=== PATIENT | male | born 1955 | race Caucasian/White ===

== ENCOUNTER → 2018-05-31 | Outpatient (CLI) | payer BC ==
[2018-05-31 10:40] VITALS: BMI 33.2
== END | disposition home or self-care (01) ==
LOC: MNTWWP 08:59
PROVIDERS: ATTEND Family Medicine
DX: R73.03 Prediabetes (principal)
CPT/HCPCS: 97802

== ENCOUNTER 2019-06-21 07:04 | Day surgery (SDC) | payer BC ==
[2019-06-19 15:44] VITALS: BMI 32.5
[~2019-06-21 07:04] MED LIST: LACTATED RINGERS 1,000 ML IV SCH; LIDOCAINE 1% 20 ML VIAL (10MG/ML) FOR IV START INTRADERMA PRN
[2019-06-21 07:22] VITALS: TEMP 98.4
[2019-06-21] MEDS ORDERED: PROPOFOL 10 MG/ML 20 ML VIAL IV ONE (07:35)
--- NOTE | 2019-06-21 07:40 | P.GSHP ---
History of Present Illness H&P Date: 06/21/19 CHIEF COMPLAINT: Colon screen HISTORY OF PRESENT ILLNESS: The patient is a 64-year-old male who presents for colon screen. Lower endoscopy was offered for further evaluation and management. PAST MEDICAL HISTORY: Please see list. PAST SURGICAL HISTORY: Please see list. MEDICATIONS: Please see list. ALLERGIES: Please see list. SOCIAL HISTORY: No illicit drug use FAMILY HISTORY: No reports of Crohn disease or ulcerative colitis. REVIEW OF ORGAN SYSTEMS: CONSTITUTIONAL: No reports of fevers or chills. PHYSICAL EXAM: VITAL SIGNS: Stable GENERAL: Well-developed pleasant in no acute distress. HEENT: No scleral icterus. Extraocular movements grossly intact. Moist buccal mucosa. NECK: Supple without lymphadenopathy. CHEST: Unlabored respirations. Equal bilateral excursions. CARDIOVASCULAR: Regular rate and rhythm. Distal 2+ pulses. ABDOMEN: Soft, nontender, nondistended. MUSCULOSKELETAL: No clubbing, cyanosis, or edema. ASSESSMENT: 1. Colon screen. PLAN: 1. Recommend proceeding with a lower endoscopy Past Medical History Past Medical History: GERD/Reflux, Hyperlipidemia, Hypertension Additional Past Medical History / Comment(s): KIDNEY STONE History of Any Multi-Drug Resistant Organisms: None Reported Past Surgical History: Hernia Repair, Orthopedic Surgery Additional Past Surgical History / Comment(s): neck fusion, right shoulder SX, COLONOSCOPY, SX FOR KIDNEY STONES Past Anesthesia/Blood Transfusion Reactions: Postoperative Nausea & Vomiting (PONV) Additional Past Anesthesia/Blood Transfusion Reaction / Comment(s): Had issues coming out of Anesthesia. Stated N/V Smoking Status: Former smoker - Past Family History Sister(s) Family Medical History: Cancer Medications and Allergies Home Medications Medication Instructions Recorded Confirmed Type Enalapril [Vasotec] 5 mg PO BID 02/12/16 06/21/19 History Fenofibrate Nanocrystallized 145 mg PO DAILY 02/12/16 06/21/19 History [Fenofibrate] Hydrochlorothiazide 12.5 mg PO Q48H 02/12/16 06/21/19 History Metoprolol Tartrate [Lopressor] 50 mg PO BID 02/12/16 06/21/19 History amLODIPine [Norvasc] 5 mg PO BID 02/12/16 06/21/19 History traMADol HCL [Ultram] 50 mg PO Q6H PRN 02/12/16 06/21/19 History Atorvastatin [Lipitor] 10 mg PO HS 11/27/17 06/21/19 History Potassium Chloride [Klor-Con 10] 10 meq PO HS 11/27/17 06/21/19 History Ascorbic Acid [Vitamin C] 500 mg PO DAILY 06/19/19 06/21/19 History Cholecalciferol [Vitamin D3 (25 5,000 unit PO DAILY 06/19/19 06/21/19 History Mcg = 1000 Iu)] Fish Oil/Dha/Epa [Fish Oil 1,200 1 each PO DAILY 06/19/19 06/21/19 History mg Fish Oil] Ranitidine HCl [Zantac] 150 mg PO DAILY PRN 06/19/19 06/21/19 History Vitamin B Complex 1 each PO DAILY 06/19/19 06/21/19 History Allergies Allergy/AdvReac Type Severity Reaction Status Date / Time celecoxib [From Celebrex] Allergy Unknown Unknown Verified 06/21/19 07:16 Surgical - Exam Vital Signs Temp Pulse Resp BP Pulse Ox 98.4 F 70 16 154/91 96 06/21/19 07:21 06/21/19 07:21 06/21/19 07:21 06/21/19 07:21 06/21/19 07:21
--- NOTE | 2019-06-21 07:58 | P.PCN ---
Date of Procedure: 06/21/19 Description of Procedure: PREOPERATIVE DIAGNOSIS: Personal history of colon polyps. POSTOPERATIVE DIAGNOSIS: Personal history of colon polyps. Multiple tubular adenomas throughout the colon. External hemorrhoids, grade 2. OPERATION: Colonoscopy to the ileocecal valve and appendiceal orifice. Colonoscopy with multiple polypectomies using cold forceps biopsies. SURGEON: Neeru Lopez MD. ANESTHESIA: MAC. INDICATIONS: The patient is a 64-year-old male who presents for colonoscopy screening. Last colonoscopy 3 years ago. Benefits and risks were described and informed consent was obtained. DESCRIPTION OF PROCEDURE: The patient had undergone Suprep. He had been brought into the operating room and laid in the left lateral decubitus position. After adequate intravenous sedation, the rectum was examined with 2% lidocaine jelly. External hemorrhoids were encountered. The rectal tone was within normal limits. The prostate was unremarkable. No lesions were palpated in the rectal vault. An Olympus colonoscope was advanced until the ileocecal valve and appendiceal orifice were clearly viewed. The prep was fair with visualization of the mucosal folds. The scope was removed with visualization of each mucosal fold. Few scattered diverticulosis was encountered. Multiple colonic polyps were found and removed with cold forcep biopsy. No evidence of focal colitis was found. Retroflexion of the scope demonstrated grade 1 internal hemorrhoids without active bleeding or inflammation. The colon was desufflated. The patient had tolerated the procedure well. Withdrawal time was over 6 minutes. FINDINGS: Aronchick preparation quality scale 2 (1-5) Internal hemorrhoids, grade 1 External hemorrhoids, grade 2. No arteriovenous malformations. Few scattered diverticulosis Removal of 3 polyps from the mid transverse colon and descending colon: - Cold forceps biopsy at 30 cm from the anal verge, 5 mm polyp. - Cold forceps biopsy at mid transverse colon x 2, 3 and 4 mm polyp. No focal colitis. RECOMMENDATIONS: Given severity of tubular adenomas, recommend repeat colonoscopy in 3 years, 2021 Plan - Discharge Summary Discharge Rx Participant: No New Discharge Prescriptions: No Action traMADol HCL [Ultram] 50 mg PO Q6H PRN PRN Reason: Pain amLODIPine [Norvasc] 5 mg PO BID Metoprolol Tartrate [Lopressor] 50 mg PO BID Enalapril [Vasotec] 5 mg PO BID Hydrochlorothiazide 12.5 mg PO Q48H Fenofibrate Nanocrystallized [Fenofibrate] 145 mg PO DAILY Atorvastatin [Lipitor] 10 mg PO HS Potassium Chloride [Klor-Con 10] 10 meq PO HS Cholecalciferol [Vitamin D3 (25 Mcg = 1000 Iu)] 5,000 unit PO DAILY Ascorbic Acid [Vitamin C] 500 mg PO DAILY Vitamin B Complex 1 each PO DAILY Ranitidine HCl [Zantac] 150 mg PO DAILY PRN PRN Reason: Heartburn Fish Oil/Dha/Epa [Fish Oil 1,200 mg Fish Oil] 1 each PO DAILY Discharge Medication List Enalapril [Vasotec] 5 mg PO BID 02/12/16 [History] Fenofibrate Nanocrystallized [Fenofibrate] 145 mg PO DAILY 02/12/16 [History] Hydrochlorothiazide 12.5 mg PO Q48H 02/12/16 [History] Metoprolol Tartrate [Lopressor] 50 mg PO BID 02/12/16 [History] amLODIPine [Norvasc] 5 mg PO BID 02/12/16 [History] traMADol HCL [Ultram] 50 mg PO Q6H PRN 02/12/16 [History] Atorvastatin [Lipitor] 10 mg PO HS 11/27/17 [History] Potassium Chloride [Klor-Con 10] 10 meq PO HS 11/27/17 [History] Ascorbic Acid [Vitamin C] 500 mg PO DAILY 06/19/19 [History] Cholecalciferol [Vitamin D3 (25 Mcg = 1000 Iu)] 5,000 unit PO DAILY 06/19/19 [History] Fish Oil/Dha/Epa [Fish Oil 1,200 mg Fish Oil] 1 each PO DAILY 06/19/19 [History] Ranitidine HCl [Zantac] 150 mg PO DAILY PRN 06/19/19 [History] Vitamin B Complex 1 each PO DAILY 06/19/19 [History] Follow up Appointment(s)/Referral(s): Neeru Lopez MD [STAFF PHYSICIAN] - As Needed Patient Instructions/Handouts: Colorectal Polyps (GEN) Activity/Diet/Wound Care/Special Instructions: Repeat colonoscopy 3 years, 2021 Discharge Disposition: HOME SELF-CARE
[2019-06-21 08:15] VITALS: BP 107/72; PULSE 70; RESP 16
== END 2019-06-21 08:45 | disposition home or self-care (01) ==
LOC: ORWHC2ENDO 07:04
PROVIDERS: ATTEND Surgery Plastic and Reconstructive Surgery
DX: Z12.11 Encounter for screening for malignant neoplasm of colon (principal); K63.5 Polyp of colon; K64.4 Residual hemorrhoidal skin tags; K57.30 Diverticulosis of large intestine without perforation or abscess without bleeding; K64.0 First degree hemorrhoids; I12.9 Hypertensive chronic kidney disease with stage 1 through stage 4 chronic kidney disease, or unspecified chronic kidney disease; N18.9 Chronic kidney disease, unspecified; K21.9 Gastro-esophageal reflux disease without esophagitis; E78.5 Hyperlipidemia, unspecified; Z86.010 Personal history of colon polyps; Z79.899 Other long term (current) drug therapy; Z88.6 Allergy status to analgesic agent; Z98.890 Other specified postprocedural states; Z86.14 Personal history of Methicillin resistant Staphylococcus aureus infection; Z87.442 Personal history of urinary calculi; Z87.19 Personal history of other diseases of the digestive system; Z98.1 Arthrodesis status; Z87.891 Personal history of nicotine dependence; Z80.9 Family history of malignant neoplasm, unspecified
CPT/HCPCS: 88305; 45380; J2704

== ENCOUNTER 2020-11-23 11:06 | Emergency (ER) | payer BC ==
[2020-11-23 11:27] VITALS: BP 145/86; PULSE 110; RESP 24
[2020-11-23] MEDS ORDERED: ACETAMINOPHEN TAB 500 MG TAB PO STA (11:45)
[2020-11-23] MEDS ORDERED: SODIUM CHLORIDE 0.9% 1,000 ML IV STA (11:45)
[2020-11-23 11:53] VITALS: TEMP 101.6
[2020-11-23 12:06] LABS: Basophils # (A) 0.1 k/uL (0-0.2); Basophils % (A) 1 %; Eosinophils % (A) 0 %; HCT 44.7 % (39.0-53.0); HGB 15.5 gm/dL (13.0-17.5); Lymphocytes # (A) 1.3 k/uL (1.0-4.8); Lymphocytes % (A) 14 %; MCH 31.3 pg (25.0-35.0); MCHC 34.5 g/dL (31.0-37.0); MCV 90.5 fL (80.0-100.0); Mean Platelet Volume 8.7; Monocytes # (A) 0.5 k/uL (0-1.0); Monocytes % (A) 6 %; Neutrophils # (A) 7.1 k/uL (1.3-7.7); Neutrophils % (A) 78 %; Platelet Count 182 k/uL (150-450); RBC 4.94 m/uL (4.30-5.90); WBC 9.2 k/uL (3.8-10.6)
--- NOTE | 2020-11-23 12:17 | ED ---
URI HPI - General Chief Complaint: Upper Respiratory Infection Stated Complaint: Cough, weakness,COVID + Time Seen by Provider: 11/23/20 11:29 Source: patient Mode of arrival: ambulatory Limitations: no limitations - History of Present Illness Initial Comments: Patient is a 65-year-old male with history of hypertension, hyperlipidemia, presenting to the emergency department with concerns for worsening Covid symptoms. Patient's symptoms began about 6-7 days ago, positive test was 3 days ago. Patient has complaining of intermittent fevers, cough, shortness of breath with exertion as well as nausea and fatigue. He did not take any Tylenol or Motrin today. Denies any chest pains. He has been able to tolerate a light diet, fluid intake. He denies history of asthma or COPD. He was a former smoker. He has no further complaints at this time. Upon arrival to the ER, he was slightly febrile at 99.9, tachycardia at 110, 94% on room air. - Related Data Home Medications Medication Instructions Recorded Confirmed Enalapril [Vasotec] 5 mg PO BID 02/12/16 06/21/19 Fenofibrate Nanocrystallized 145 mg PO DAILY 02/12/16 06/21/19 [Fenofibrate] Hydrochlorothiazide 12.5 mg PO Q48H 02/12/16 06/21/19 [hydroCHLOROthiazide] Metoprolol Tartrate [Lopressor] 50 mg PO BID 02/12/16 06/21/19 amLODIPine [Norvasc] 5 mg PO BID 02/12/16 06/21/19 traMADol HCL [Ultram] 50 mg PO Q6H PRN 02/12/16 06/21/19 Atorvastatin [Lipitor] 10 mg PO HS 11/27/17 06/21/19 Potassium Chloride [Klor-Con 10] 10 meq PO HS 11/27/17 06/21/19 Ascorbic Acid [Vitamin C] 500 mg PO DAILY 06/19/19 06/21/19 Cholecalciferol [Vitamin D3 (25 5,000 unit PO DAILY 06/19/19 06/21/19 Mcg = 1000 Iu)] Fish Oil/Dha/Epa [Fish Oil 1,200 1 each PO DAILY 06/19/19 06/21/19 mg Fish Oil] Vitamin B Complex 1 each PO DAILY 06/19/19 06/21/19 raNITIdine HCL [Zantac] 150 mg PO DAILY PRN 06/19/19 06/21/19 Previous Rx's Medication Instructions Recorded Albuterol Inhaler [Ventolin Hfa 1 puff INHALATION RT-QID PRN #1 11/23/20 Inhaler] puff Dexamethasone [Decadron] 6 mg PO DAILY 5 Days #5 tablet 11/23/20 Allergies Allergy/AdvReac Type Severity Reaction Status Date / Time celecoxib [From Celebrex] Allergy Unknown Unknown Verified 11/23/20 11:27 Review of Systems ROS Statement: Those systems with pertinent positive or pertinent negative responses have been documented in the HPI. ROS Other: All systems not noted in ROS Statement are negative. Past Medical History Past Medical History: GERD/Reflux, Hyperlipidemia, Hypertension Additional Past Medical History / Comment(s): KIDNEY STONE History of Any Multi-Drug Resistant Organisms: None Reported Past Surgical History: Hernia Repair, Orthopedic Surgery Additional Past Surgical History / Comment(s): neck fusion, right shoulder SX, COLONOSCOPY, SX FOR KIDNEY STONES Past Anesthesia/Blood Transfusion Reactions: Postoperative Nausea & Vomiting (PONV) Additional Past Anesthesia/Blood Transfusion Reaction / Comment(s): Had issues coming out of Anesthesia. Stated N/V Past Psychological History: No Psychological Hx Reported Smoking Status: Never smoker Past Alcohol Use History: None Reported Past Drug Use History: None Reported - Past Family History Sister(s) Family Medical History: Cancer General Exam - General Exam Comments Initial Comments: GENERAL: Patient is well-developed and well-nourished. Patient is nontoxic and in no acute distress. HEAD: Atraumatic, normocephalic. EYES: Pupils equal round and reactive to light, extraocular movements intact, sclera anicteric, conjunctiva are normal. Eyelids were unremarkable. ENT: TMs normal, nares patent, oropharynx clear without exudates. Moist mucous membranes. NECK: Normal range of motion, supple without lymphadenopathy or JVD. LUNGS: Unlabored respirations. Breath sounds clear to auscultation bilaterally and equal. No wheezes rales or rhonchi. Dry cough noted. HEART: Regular rate and rhythm without murmurs, rubs or gallops. ABDOMEN: Soft, nontender, normoactive bowel sounds. No guarding, no rebound. No masses appreciated. : Deferred MUSCULOSKELETAL: Normal extremities with adequate strength and normal range of motion, no pitting or edema. No clubbing or cyanosis. NEUROLOGICAL: Patient is alert and oriented x 3. Motor and sensory are also intact. Cranial nerves II through XII grossly intact. Symmetrical smile. Normal speech, normal gait. PSYCH: Normal mood, normal affect. SKIN: Warm, Dry, normal turgor, no rashes or lesions noted. Limitations: no limitations Course Vital Signs 11/23/20 11/23/20 11:24 11:53 Temperature 99.9 F H 101.6 F H Pulse Rate 110 H Respiratory 24 Rate Blood Pressure 145/86 O2 Sat by Pulse 94 L Oximetry Medical Decision Making - Medical Decision Making Patient is a 65-year-old male here for worsening Covid symptoms. Symptoms began 6 days ago, positive test 3 days ago. He did arrive slightly febrile, mildly tachycardia and 94% on room air. His exam revealed no acute findings. EKG shows sinus tach, no other acute process. Labs are within normal limits, mild dehydration. Chest x-ray shows patchy interstitial infiltrates. Patient received Covid antibody therapy, tolerated well. His vital signs have improved, remains stable. Patient is stable for discharge. I will send home with steroids, inhaler for his symptoms. Return parameters were discussed with the patient and he verbalized understanding. Case discussed with Dr. Delacruz. - Lab Data Result diagrams: 11/23/20 11:53 11/23/20 11:53 Lab Results 11/23/20 11/23/20 Range/Units 11:53 11:53 WBC 9.2 (3.8-10.6) k/uL RBC 4.94 (4.30-5.90) m/uL Hgb 15.5 (13.0-17.5) gm/dL Hct 44.7 (39.0-53.0) % MCV 90.5 (80.0-100.0) fL MCH 31.3 (25.0-35.0) pg MCHC 34.5 (31.0-37.0) g/dL RDW 13.0 (11.5-15.5) % Plt Count 182 (150-450) k/uL MPV 8.7 Neutrophils % 78 % Lymphocytes % 14 % Monocytes % 6 % Eosinophils % 0 % Basophils % 1 % Neutrophils # 7.1 (1.3-7.7) k/uL Lymphocytes # 1.3 (1.0-4.8) k/uL Monocytes # 0.5 (0-1.0) k/uL Eosinophils # 0.0 (0-0.7) k/uL Basophils # 0.1 (0-0.2) k/uL Sodium 137 (137-145) mmol/L Potassium 3.6 (3.5-5.1) mmol/L Chloride 104 (98-107) mmol/L Carbon Dioxide 22 (22-30) mmol/L Anion Gap 11 mmol/L BUN 23 H (9-20) mg/dL Creatinine 1.34 H (0.66-1.25) mg/dL Est GFR (CKD-EPI)AfAm 65 (>60 ml/min/1.73 sqM) Est GFR (CKD-EPI)NonAf 56 (>60 ml/min/1.73 sqM) Glucose 114 H (74-99) mg/dL Calcium 8.7 (8.4-10.2) mg/dL Total Bilirubin 0.6 (0.2-1.3) mg/dL AST 66 H (17-59) U/L ALT 42 (4-49) U/L Alkaline Phosphatase 82 (38-126) U/L C-Reactive Protein 27.4 H (<10.0) mg/L Total Protein 7.0 (6.3-8.2) g/dL Albumin 3.9 (3.5-5.0) g/dL - EKG Data EKG Comments: Sinus tach, possible inferior infarct, age undetermined, no signs of acute ischemia. It is similar to his previous EKG on 11/26/2017. The jugular rate 111, SC interval 1:30, QTC 318. Reviewed by Dr. Delacruz. Disposition Clinical Impression: Pneumonia due to COVID-19 virus Disposition: HOME SELF-CARE Condition: Stable Instructions (If sedation given, give patient instructions): Coronavirus Disease 2019 (COVID-19) Additional Instructions: Please return to the Emergency Department if symptoms worsen or any other concerns. Take steroids as prescribed, use inhaler as needed for shortness of breath or cough. Continue alternating between Tylenol and Motrin for fever control and body aches. Increase fluid intake. Prescriptions: Dexamethasone [Decadron] 6 mg PO DAILY 5 Days #5 tablet Albuterol Inhaler [Ventolin Hfa Inhaler] 1 puff INHALATION RT-QID PRN #1 puff PRN Reason: Shortness Of Breath Is patient prescribed a controlled substance at d/c from ED?: No Referrals: Baltazar Lay DO [Primary Care Provider] - 1-2 days Time of Disposition: 14:25
[2020-11-23 12:18] LABS: Albumin 3.9 g/dL (3.5-5.0); C Reactive Protein 27.4 mg/L (<10.0); Calcium 8.7 mg/dL (8.4-10.2); Potassium 3.6 mmol/L (3.5-5.1); Total Bilirubin 0.6 mg/dL (0.2-1.3)
--- NOTE | 2020-11-23 12:24 | XR ---
EXAMINATION TYPE: XR chest 2V DATE OF EXAM: 11/23/2020 COMPARISON: 11/26/2017 HISTORY: 65-year-old male COVID positive, cough and shortness of breath TECHNIQUE: PA and lateral views FINDINGS: The heart is normal size. Aorta within normal limits. Patchy interstitial opacities throughout, right greater than left. IMPRESSION: Patchy interstitial infiltrates, right greater than left. Correlate for COVID pneumonia.
[2020-11-23] MEDS ORDERED: BAMLANIVIMAB (EUA) 700 MG, ETESEVIMAB (EUA) 1,400 MG in SODIUM CHLORIDE 0.9% 50 ML IVPB ONE (13:00)
== END 2020-11-23 14:47 | disposition home or self-care (01) ==
LOC: EC 11:06
DX: U07.1 COVID-19 (principal); J12.82 Pneumonia due to coronavirus disease 2019; K21.9 Gastro-esophageal reflux disease without esophagitis; E78.5 Hyperlipidemia, unspecified; I10 Essential (primary) hypertension
CPT/HCPCS: 36415; 93005; 80053; 85025; 86140; 71046; 99285; 96365; Q0245

== ENCOUNTER → 2020-12-13 | Outpatient (CLI) | payer BC ==
--- NOTE | 2020-12-13 16:20 | XR ---
EXAMINATION TYPE: XR chest 2V DATE OF EXAM: 12/13/2020 COMPARISON: 11/23/2020 HISTORY: 65-year-old male J12.8 TECHNIQUE: Frontal and lateral views FINDINGS: Heart normal size. Aorta and pulmonary vasculature within normal limits. Patchy airspace opacity thro ughout the right lung has slightly worsened as compared to 12/10/2020. Minimal patchy density left low er lung. No pleural effusion. IMPRESSION: Patchy infiltrate throughout the right lung has worsened as compared to 11/23/2020.
== END | disposition home or self-care (01) ==
LOC: RADXRMAIN 16:02
PROVIDERS: ATTEND Family Medicine
DX: R91.8 Other nonspecific abnormal finding of lung field (principal)
CPT/HCPCS: 71046

== ENCOUNTER → 2020-12-30 | Outpatient (CLI) | payer BC ==
--- NOTE | 2020-12-30 15:48 | XR ---
EXAMINATION TYPE: XR chest 2V DATE OF EXAM: 12/30/2020 COMPARISON: Chest x-ray 12/13/2020 HISTORY: J 12.82, shortness of breath, history Covid TECHNIQUE: Frontal and lateral views of the chest are obtained. FINDINGS: Pleural parenchymal changes show similar appearance compared to prior exam but may be slig htly improved. Metallic density superimposed over the right scapula as on prior. Cardiac mediastinal silhouette is stable. No evident pneumothorax or pleural effusion. IMPRESSION: There may be some interval improvement in aeration, possible residual from prior Covid i nfection
== END | disposition home or self-care (01) ==
LOC: RADXRMAIN 11:49
PROVIDERS: ATTEND Family Medicine
DX: R06.02 Shortness of breath (principal); Z86.16 Personal history of COVID-19
CPT/HCPCS: 71046

== ENCOUNTER → 2021-09-17 | Outpatient (CLI) | payer BC ==
--- NOTE | 2021-09-18 05:50 | MR ---
EXAMINATION TYPE: MR cervical spine wo/w con DATE OF EXAM: 09/17/2021 COMPARISON: None HISTORY: Cervical root disorder, hx surgery 2016. CONTRAST: Standard multiplanar, multisequence MRI departmental protocol images were obtained without contrast a nd with 10 mL intravenous Gadavist gadolinium contrast. The cervical vertebra have normal alignment. There is metal artifact from multilevel anterior fusion surgery from C4 to C6. There is no significant compression deformity. At C5-6 there is posterior mild disc bulging and some mild effacement of the cervical spinal cord. The canal is narrowed to 7.5 mm. Cervical cord shows no edema. The brainstem is intact. Visualized cerebellum is intact. The contrast images show no pathologic enhancement. IMPRESSION: There is C5-6 disc impingement on the spinal canal and slight effacement of the cervical cord. No dieter dence of cord edema. No fracture.
== END | disposition home or self-care (01) ==
LOC: RADMRIMAIN 16:33
PROVIDERS: ATTEND Orthopaedic Surgery
DX: G54.2 Cervical root disorders, not elsewhere classified (principal); M54.2 Cervicalgia; M79.641 Pain in right hand; S44.21XD Injury of radial nerve at upper arm level, right arm, subsequent encounter; X58.XXXD Exposure to other specified factors, subsequent encounter
CPT/HCPCS: 72156; A9585

== ENCOUNTER → 2021-11-11 | Outpatient (CLI) | payer BC ==
--- NOTE | 2021-11-11 09:35 | CT ---
EXAMINATION TYPE: CT cervical spine wo con DATE OF EXAM: 11/11/2021 COMPARISON: MRI dated 09/17/2021 HISTORY: Cervicalgia CT DLP: 553.2 mGycm Automated exposure control for dose reduction was used. TECHNIQUE: CT scan of the cervical spine is obtained without contrast, axial images are obtained, sa gittal and coronal reformatted images are also reviewed. FINDINGS: Previous anterior fixation of C4 and C5 using a plate and 4 screws with C4-5 disc prosthesis. Suspect ed disc prosthesis at C5-6 and C6-7 levels. Fused C4, C5, C6 and C7 vertebral bodies. Mild anterolist hesis of C7 over T1. Markedly heterogeneous osseous texture of the visualized vertebrae which could be related to chronic degenerative changes however chronic renal disease or bone marrow infiltrative process can't be exclu ded, recommend clinical correlation and further workup. No evidence of prosthesis break or displacement. No definite vertebral body collapse or acute displac ed fracture. Unremarkable atlantoaxial and atlantooccipital articulation. Degenerative changes of the atlantoodontoid articulation with multilevel facet osteoarthropathy most evident at C2-3, C3-4 and C 7-T1 levels. At C2-3 level: Severe right-sided facet osteoarthropathy, causing no significant central spinal canal stenosis or neuroforaminal stenosis. At C3-4 level: Posterior disc osteophyte complex with severe left facet osteoarthropathy, causing mod erate to severe central spinal canal stenosis, mild right and severe left neuroforaminal stenosis. At C4-5 level: Posterior disc osteophyte complex with bilateral facet osteoarthropathy, causing moder ate to severe central spinal canal stenosis and mild bilateral neuroforaminal stenosis. At C5-6 level: Posterior disc osteophyte complex, causing severe central spinal canal stenosis and se marshall bilateral neuroforaminal stenosis. At C6-7 level: Posterior disc osteophyte complex, causing severe central spinal canal stenosis and mo derate bilateral neuroforaminal stenosis. At C7-T1 level: Grade 1 anterolisthesis with severe bilateral facet osteoarthropathy and posterior di sc stripe complex, causing moderate central spinal canal stenosis and moderate bilateral neuroforamin al stenosis. Mucosal thickening of the right maxillary sinus with hyperdensity within which could represent inspis sated secretion versus fungal infection, please correlate clinically. Slightly prominent nasopharynge al soft tissue. Bilateral pontine tonsil calcification and slight enlargement, please correlate clini akira. Scattered bilateral subcentimeter cervical lymph nodes, nonspecific. IMPRESSION: Postsurgical changes and degenerative changes of the cervical spine with multilevel spinal canal sten osis and neuroforaminal stenosis as detailed above, please relate clinically and with MRI results. Ot her incidental findings and recommendations as detailed above.
== END | disposition home or self-care (01) ==
LOC: RADCTMAIN 07:41
PROVIDERS: ATTEND Orthopaedic Surgery Orthopaedic Surgery of the Spine
DX: M54.12 Radiculopathy, cervical region (principal); M79.12 Myalgia of auxiliary muscles, head and neck; M43.12 Spondylolisthesis, cervical region; M47.812 Spondylosis without myelopathy or radiculopathy, cervical region; M50.320 Other cervical disc degeneration, mid-cervical region, unspecified level
CPT/HCPCS: 72125

== ENCOUNTER → 2021-12-24 | Outpatient (CLI) | payer BC ==
--- NOTE | 2021-12-24 10:58 | XR ---
EXAMINATION TYPE: XR chest 2V DATE OF EXAM: 12/24/2021 COMPARISON: 12/30/2020 TECHNIQUE: PA and lateral views submitted. HISTORY: Preop FINDINGS: The lungs are clear and there is no pneumothorax, pleural effusion, or focal pneumonia. Heart size normal. Nonspecific density overlying the right scapula stable. IMPRESSION: 1. No acute process.
[2021-12-24 18:26] LABS: HCT 42.5 % (39.6-50.0); HGB 13.4 g/dL (13.0-17.0); MCHC 31.5 g/dL (32.0-37.0); MCV 95.3 fL (80.0-97.0); NRBC Per 100 WBC 0 /100 WBCS (0.0-0.0); Platelet Count 265 X 10*3/uL (140-440); RBC 4.46 X 10*6/uL (4.40-5.60); RDW 14.2 % (11.5-14.5); WBC 9.24 X 10*3/uL (4.50-10.00)
[2021-12-24 20:09] LABS: African American GFR (CKD) 73.1 (60.0-200.0); Anion Gap 11.2 mmol/L (10.00-18.00); BUN/Creat Ratio 13.5 Ratio (12.00-20.00); Blood Urea Nitrogen 16.2 mg/dL (9.0-27.0); Calcium 9.4 mg/dL (8.7-10.3); Carbon Dioxide 23.8 mmol/L (20.0-27.5); Non-African American GFR(CKD) 63.1 (60.0-200.0); Potassium 3.8 mmol/L (3.5-5.5)
== END | disposition home or self-care (01) ==
LOC: LABPAT 10:32
PROVIDERS: ATTEND Orthopaedic Surgery Orthopaedic Surgery of the Spine
DX: Z01.818 Encounter for other preprocedural examination (principal); Z01.812 Encounter for preprocedural laboratory examination; M50.023 Cervical disc disorder at C6-C7 level with myelopathy
CPT/HCPCS: 36415; 71046; 80048; 85027; 85610; 85730

== ENCOUNTER 2021-12-29 11:29 | Observation (INO) | payer BC ==
[2021-12-25 18:36] VITALS: BMI 34.5
[~2021-12-29 11:29] MED LIST changes: +DEXAMETHASONE SOD PHOSPHATE 4 MG/ML 1 ML VIAL IV ONE; +HYDROmorphone 0.5 MG/0.5 ML SYRINGE IVP PRN; -LACTATED RINGERS 1,000 ML IV SCH; -LIDOCAINE 1% 20 ML VIAL (10MG/ML) FOR IV START INTRADERMA PRN; +ONDANSETRON 4 MG/2 ML VIAL IVP ONE; +ceFAZolin 1,000 MG in SODIUM CHLORIDE 0.9% IRRIGATIO 1,000 ML IRRIGATION PRN
[2021-12-29] MEDS: LACTATED RINGERS 1,000 ML IV SCH (11:48)
[2021-12-29] MEDS ORDERED: LIDOCAINE 2% INJ 20 MG/ML (2 ML VIAL) ONE (12:42)
[2021-12-29] MEDS ORDERED: NEOSTIGMINE 1 MG/ML 10 ML VIAL ONE (12:42)
[2021-12-29] MEDS ORDERED: ROCURONIUM 10 MG/ML (5 ML VIAL) IV ONE (12:42)
[2021-12-29] MEDS ORDERED: MIDAZOLAM 2 MG/2 ML VIAL ONE (12:42)
[2021-12-29] MEDS ORDERED: DEXAMETHASONE SOD PHOSPHATE 10 MG/ML 1 ML VIAL ONE (12:42)
[2021-12-29] MEDS ORDERED: fentaNYL (PF) 50 MCG/ML 2 ML AMP ONE (12:42)
[2021-12-29] MEDS ORDERED: GLYCOPYRROLATE 0.2 MG/ML 2 ML VIAL ONE (12:42)
[2021-12-29] MEDS ORDERED: PHENYLEPHRINE-0.9% NACL SYG 1,000 MCG/10 ML SYRINGE ONE (12:42)
[2021-12-29] MEDS ORDERED: PROPOFOL 10 MG/ML 20 ML VIAL IV ONE (12:42)
[2021-12-29] MEDS ORDERED: SUCCINYLCHOLINE CHLORIDE 100 MG/5 ML SYR IV ONE (12:42)
[2021-12-29] MEDS ORDERED: diphenhydrAMINE 50 MG/ML 1 ML VIAL ONE (12:42)
[2021-12-29] MEDS ORDERED: GELATIN SPONGE,ABSORB (LARGE) 1 EACH SPONGE MISCELLANE ONE (13:22)
[2021-12-29] MEDS ORDERED: BUPIVACAIN-EPI 0.25%-1:200,000 30 ML VIAL SQ ONE (13:22)
[2021-12-29] MEDS ORDERED: THROMBIN (BOVINE) 5,000 UNIT VIAL TOPICAL ONE (13:23)
--- NOTE | 2021-12-29 14:08 | XR ---
EXAMINATION TYPE: XR cervical spine 1V DATE OF EXAM: 12/29/2021 COMPARISON: NONE HISTORY: Needle placement TECHNIQUE: One view submitted FINDINGS: Postsurgical changes are seen which appear in near-anatomic alignment. Single lateral view with limited resolution provided. Suggestion of endotracheal tube. Appears to be an orthopedic instru ment overlying the soft tissues anterior to the lower cervical spine which may be part of intraoperat prem localization correlate clinically. Resolution is suboptimal markedly limited IMPRESSION: Needle placement
[2021-12-29] MEDS ORDERED: HYDROmorphone 0.5 MG/0.5 ML SYRINGE IVP PRN (14:15)
[2021-12-29] MEDS ORDERED: BENZOCAINE/MENTHOL LOZENG 1 EACH LOZENGE MUCOUS MEM PRN (14:15)
[2021-12-29] MEDS ORDERED: ONDANSETRON 4 MG/2 ML VIAL IVP PRN (14:16)
[2021-12-29] MEDS ORDERED: CYCLOBENZAPRINE 10 MG TAB PO PRN (14:16)
[2021-12-29] MEDS ORDERED: ACETAMINOPHEN TAB 500 MG TAB PO PRN (14:16)
--- NOTE | 2021-12-29 14:17 | XR ---
EXAMINATION TYPE: XR cervical spine 1V DATE OF EXAM: 12/29/2021 COMPARISON: NONE HISTORY: Post hardware placement TECHNIQUE: One view submitted FINDINGS: Technique is markedly limited. There is air and postsurgical change involving the mid cervi billy spine as well as near the cervical thoracic junction. This region is markedly limited due to over lying soft tissue uptake in the difficult to assess. NG tube noted. IMPRESSION: Hardware placement.
[2021-12-29] MEDS ORDERED: traMADol 50 MG TAB PO PRN (14:18)
[2021-12-29] MEDS ORDERED: CALCIUM CARBONATE 500 MG CHEWABLE PO PRN (14:18)
[2021-12-29] MEDS ORDERED: ALBUTEROL NEBULIZED 2.5 MG/3 ML INHALATION PRN (14:18)
[2021-12-29] MEDS ORDERED: LACTATED RINGERS 1,000 ML IV ONE (14:20)
--- NOTE | 2021-12-29 14:25 | P.OP ---
Date of Procedure: 12/29/21 Preoperative Diagnosis: Spinal stenosis C7-T1, cervical myelopathy, herniated nucleus pulposis C7-T1, history of prior anterior cervical discectomy and fusion see or 5 C5 6 C6 7, upper extremity radiculopathy, upper extremity weakness Postoperative Diagnosis: Same Anesthesia: GETA Pathology: none sent Condition: stable Disposition: PACU Description of Procedure: BRIEF OPERATIVE NOTE Preoperative Diagnosis:Spinal stenosis C7-T1, cervical myelopathy, herniated nucleus pulposis C7-T1, history of prior anterior cervical discectomy and fusion see or 5 C5 6 C6 7, upper extremity radiculopathy, upper extremity weakness Postoperative Diagnosis:Spinal stenosis C7-T1, cervical myelopathy, herniated nucleus pulposis C7-T1, history of prior anterior cervical discectomy and fusion see or 5 C5 6 C6 7, upper extremity radiculopathy, upper extremity weakness Procedure: Anterior cervical decompression with discectomy and fusion C7-T1 Placement of interbody graft C7-T1 Application of anterior cervical plate C7-T1 Exploration of fusion C6 7 with findings of stable fusion Surgeon: Dr. Coelho Director Work: Yfn Maciel is present throughout the entire the case persistence during positioning, dissection, exposure, visualization, and all crucial elements of the case as well as closure. Anesthesia: General anesthesia per Dr. Peng Estimated blood loss: Approximately 75 mL Complications: None apparent Components implanted: K2M Capron anterior cervical plate system with Vikos interbody allograft bone graft Disposition: To recovery room in good stable condition. OPERATIVE INDICATIONS The patient has had long-standing issues in their neck and upper extremities. In the past he has had several surgeries on his cervical spine including anterior cervical deep pressure with discectomy and fusion C5 6 C6 7 which he he recovered from fairly well but then developed further issues down the line and underwent further surgery of the cervical spine with decompression and fusion at C45. He did well with that however has continued developed symptoms more recently where he is having significant changes in his right upper extremity with weakness and disuse of his hand and fingers and decreased disc sterilely and signs and symptoms of a lot. He is found to have significant stenosis with listhesis at C7 T1 which correlated with his neck and upper extremity symptoms and myopathic symptoms. The patient has been through conservative treatment. The patient is having worsening of his symptoms We discussed various treatment options including surgery, and the patient wishes to proceed with surgery We discussed the risk, patient's alternatives and benefits of surgery including but not limited to, risk of bleeding risk of infection, risk of need for further surgery, risk of decreased, loss of motion, muscle function, malunion nonunion, hardware failure, nerve damage, paralysis, heart attack, and . OPERATIVE SUMMARY After discussing all the risks, patient alternatives and benefits at length, the patient elected to proceed with surgical intervention, signed informed consent, and presented for their procedure. The patient was seen and examined in the preoperative holding area and the surgical site was marked. The patient was given antibiotics and brought to the operating room. The patient was positioned on the operating room table in a supine position being careful to pad any bony prominences and pressure points. The patient was sedated and intubated by anesthesia in standard fashion. Once the airway and C- spine were stabilized the patient's arms were padded and tucked at her side, with her shoulders gently taped. The head was placed in a donut pad with the neck in good neutral alignment and position. We were careful to maintain the patient's cervical spine and good neutral alignment and position throughout. The patient was prepped and draped in a normal standard fashion. An appropriate timeout and keystone protocol performed. We were able to proceed with the surgery. The local wound area was infiltrated with local anesthetic. An incision was made transversely approximately 2-1/2 cm over the appropriate levels at C7. Dissection was taken down subcutaneously to the level of the platysma which was split in line with its fibers. Dissection was taken with a carotid approach, with the trachea and esophagus medial and the carotid sheath laterally. We dissected down to the anterior surface of the vertebral bodies at C7-T1. I was able to expose the anterior vertebral bodies at C5-C6 7 and T1. There is evidence of solid fusion at C6 7 and I went down to the next caudal interbody space. Intraoperative x-ray was taken which showed a marker at the appropriate level of the vertebral body of C7. With the appropriate level positively confirmed, we were able to proceed with discectomy at the appropriate level of C7-T1. All of the operative levels were exposed appropriately. The patient had all their twitches back, and there was no evidence of recurrent laryngeal issue. The wound was copiously irrigated and suctioned dry as had been done periodically throughout the case. At the appropriate level of C7-T1, I established an annulotomy with an 11 blade scalpel. A discectomy was performed with a combination of pituitary rongeurs, curettes, a high-speed bur, and Kerrison rongeurs. The posterior longitudinal ligament was taken down as were any posterior osteophytes. This gave good central and bilateral foraminal decompression. There is no evidence of any dural tear or leak. The endplates were prepared with a high-speed bur. With the endplates in good parallel position, I was able to size for the appropriate size interbody graft. The wound was irrigated and suctioned dry the graft was prepared and malleted into position. It had good alignment and position with the anterior surface flush with the anterior surface of the vertebral bodies of C7 and T1 With the grafts intact, I was able to measure and contour and appropriate sized plate. The plate was positioned at the midline over the appropriate levels at C7-T1. Screw holes were established with a hand drill and drill guide. Screws were placed in good alignment and position with excellent bony purchase. They were seated under the locking device. The construct was checked and found to be stable. Intraoperative x-ray was taken which showed good alignment and position of the implants at the appropriate levels. There was no evidence of any dural tear or leak. Good hemostasis was maintained. The wound was copiously irrigated and suctioned dry as had been done periodically throughout the case. The platysma was closed with absorbable suture. The subcutaneous tissue was closed. The subcuticular tissue was closed with absorbable suture. The wound was cleaned and dried and dressed appropriately. A soft cervical collar was placed appropriately. The patient was woken up by anesthesia, extubated, transferred back gently to their hospital bed and brought to the recovery room in good stable condition. The patient will be admitted to the hospital for appropriate postoperative care, medical management and monitoring. We will continue to follow them closely about the postoperative course.
[2021-12-29] MEDS ORDERED: hydroCHLOROthiazide 12.5 MG CAP PO SCH (15:00)
[2021-12-29] MEDS: SODIUM CHLORIDE 0.9% 1,000 ML IV SCH (16:59)
[2021-12-29 20:34] VITALS: RESP 16
[2021-12-29] MEDS: HYDROmorphone 1 MG/ML 1 ML SYRINGE IVP PRN (20:51)
[2021-12-29] MEDS: lisinopriL 10 MG TAB PO SCH (20:59)
[2021-12-29] MEDS: METOPROLOL TARTRATE 50 MG TAB PO SCH (20:59)
[2021-12-29] MEDS: amLODIPine 5 MG TAB PO SCH (20:59)
[2021-12-29] MEDS ORDERED: POTASSIUM CHLORIDE ER 10 MEQ TAB.ER.PRT PO SCH (21:00)
[2021-12-29] MEDS ORDERED: ATORVASTATIN 10 MG TAB PO SCH (21:00)
[2021-12-29] MEDS: HYDROcodone/APAP 5-325MG 1 EACH TAB PO PRN (23:35)
[2021-12-30] MEDS: HYDROmorphone 1 MG/ML 1 ML SYRINGE IVP PRN (03:44)
[2021-12-30] MEDS: SODIUM CHLORIDE 0.9% 1,000 ML IV SCH (03:47)
[2021-12-30 05:01] VITALS: TEMP 97.8
[2021-12-30] MEDS: LACTATED RINGERS 1,000 ML IV SCH (05:56)
[2021-12-30 07:53] VITALS: BP 122/77; PULSE 71
[2021-12-30] MEDS: HYDROcodone/APAP 5-325MG 1 EACH TAB PO PRN (08:00)
[2021-12-30] MEDS: METOPROLOL TARTRATE 50 MG TAB PO SCH (08:00)
[2021-12-30] MEDS: lisinopriL 10 MG TAB PO SCH (08:00)
[2021-12-30] MEDS: amLODIPine 5 MG TAB PO SCH (08:01)
--- NOTE | 2021-12-30 08:32 | P.DS ---
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 Current Visit: Yes Status: Acute (3) Weakness of right upper extremity Current Visit: Yes Status: Acute (4) Radiculopathy affecting upper extremity Current Visit: Yes Status: Acute (5) Cervical myelopathy Current Visit: Yes Status: Acute (6) History of cervical spinal arthrodesis Current Visit: Yes Status: Acute (7) Hyperlipidemia Current Visit: Yes Status: Acute (8) Hypertension Current Visit: Yes Status: Acute (9) Kidney disease Current Visit: Yes Status: Acute (10) Status post cervical arthrodesis Current Visit: Yes Status: Acute Hospital Course: This is a pleasant 66-year-old male who presented with C7-T1 spinal stenosis and herniated nucleus pulposus, cervical myelopathy, significant right upper extremity weakness with atrophy, upper extremity radiculopathy, and history of previous anterior cervical decompression and fusion at C5-6 and C6-7 who failed outpatient conservative therapy. He was admitted for a C7-T1 anterior cervical decompression and fusion. The patient tolerated the procedure well and did well postoperatively. His cervical pain is well-controlled. He has not had any significant change in regards to his upper extremity weakness postoperatively. He is able to eat breakfast independently this morning. He is eating and voiding without difficulty. He does feel his pain is well controlled and he is ready for discharge today. Condition on day of discharge stable. Patient will be discharged home. Patient was cleared preoperatively for surgery by Dr. Lay. Patient currently denies any nausea, vomiting, fever, or chills. Patient is eating and voiding freely without difficulty. Patient may shower Optifoam dressing intact. Patient may remove Optifoam dressing in 3 days and shower without a dressing at that time. Patient should refrain from driving un til at least after their first follow-up appointment in the office. Patient should avoid excessive neck flexion, extension, rotation, and lateral sidebending; no overhead lifting; no lifting greater than 10 pounds. Patient may wear his soft cervical collar for comfort support as needed. Patient states he does take tramadol as prescribed in the outpatient setting for pain control. He states he does not need any more of this medication currently. We did discuss that he would need a refill of this medication he may contact the office for a refill. He is currently prescribed this medication at 50 mg 1 tablet every 6 hours as needed for pain. We did discuss for his postoperative pain he could take this medicine at tramadol 50 mg 1-2 tabs every 6 hours as needed for pain. Patient should avoid anti-inflammatory medications over the next 6 weeks postoperatively. Patient's other medical diagnoses include hypertension, hyperlipidemia, and kidney disease. Physical Exam on day of discharge: Patient is awake, alert, and oriented 3 Vital signs stable Good chest excursion with deep inspiration and expiration Abdomen soft nontender No signs or symptoms of DVT; no calf pain Adequate range of motion of the cervical spine with adequate flexion, extension, and bilateral rotation Evidence of atrophy over the right upper arm and forearm Patient has significant difficulty with extension of the fingers of the right hand Patient is able to travel ot with his right hand with 5/5 strength Motor strength of the left upper extremity is 5/5 including travel ot strength, thumb strength, interosseous strength, biceps strength, triceps strength, and shoulder strength positive sustained bilaterally Soft cervical collar intact; collar is removed and reapplied during physical examination Incision is clean, dry, and intact; no erythema, purulence, or signs of infection Optifoam dressing intact Procedures: C7-T1 anterior cervical decompression and fusion Patient Condition at Discharge: Stable Plan - Discharge Summary Discharge Rx Participant: No New Discharge Prescriptions: No Action traMADol HCL [Ultram] 50 mg PO Q6H PRN PRN Reason: Pain amLODIPine [Norvasc] 5 mg PO BID Metoprolol Tartrate [Lopressor] 50 mg PO BID Enalapril [Vasotec] 5 mg PO BID Hydrochlorothiazide [hydroCHLOROthiazide] 12.5 mg PO Q48H Fenofibrate Nanocrystallized [Fenofibrate] 145 mg PO DAILY Atorvastatin [Lipitor] 10 mg PO HS Potassium Chloride [Klor-Con 10 ER] 10 meq PO HS Cholecalciferol [Vitamin D3 (25 Mcg = 1000 Iu)] 5,000 unit PO DAILY Ascorbic Acid [Vitamin C] 500 mg PO DAILY Vitamin B Complex 1 each PO DAILY Fish Oil/Dha/Epa [Fish Oil 1,200 mg Fish Oil] 1 each PO DAILY Calcium Carbonate [Tums] 1,000 mg PO QID PRN PRN Reason: GERD Albuterol Inhaler [Ventolin Hfa Inhaler] 1 puff INHALATION RT-QID PRN #1 puff PRN Reason: Shortness Of Breath Multivitamins, Thera [Multivitamin (formulary)] 1 tab PO DAILY Discharge Medication List Enalapril [Vasotec] 5 mg PO BID 02/12/16 [History] Fenofibrate Nanocrystallized [Fenofibrate] 145 mg PO DAILY 02/12/16 [History] Hydrochlorothiazide [hydroCHLOROthiazide] 12.5 mg PO Q48H 02/12/16 [History] Metoprolol Tartrate [Lopressor] 50 mg PO BID 02/12/16 [History] amLODIPine [Norvasc] 5 mg PO BID 02/12/16 [History] traMADol HCL [Ultram] 50 mg PO Q6H PRN 02/12/16 [History] Atorvastatin [Lipitor] 10 mg PO HS 11/27/17 [History] Potassium Chloride [Klor-Con 10 ER] 10 meq PO HS 11/27/17 [History] Ascorbic Acid [Vitamin C] 500 mg PO DAILY 06/19/19 [History] Cholecalciferol [Vitamin D3 (25 Mcg = 1000 Iu)] 5,000 unit PO DAILY 06/19/19 [History] Fish Oil/Dha/Epa [Fish Oil 1,200 mg Fish Oil] 1 each PO DAILY 06/19/19 [History] Vitamin B Complex 1 each PO DAILY 06/19/19 [History] Albuterol Inhaler [Ventolin Hfa Inhaler] 1 puff INHALATION RT-QID PRN #1 puff 11/23/20 [Rx] Calcium Carbonate [Tums] 1,000 mg PO QID PRN 12/25/21 [History] Multivitamins, Thera [Multivitamin (formulary)] 1 tab PO DAILY 12/25/21 [History] Follow up Appointment(s)/Referral(s): Yfn Eden, NELL [PHYSICIAN BUFFET WAITER/WAITRESS] - 2 Weeks (Patient may follow-up with Yfn Eden PA-C or Dr. Anup Coelho at [facility] in 2-3 weeks following discharge. ) Activity/Diet/Wound Care/Special Instructions: 1. Patient may shower with Optifoam dressing intact. 2. Patient may remove Optifoam dressing in 3 days and shower without a dressing at that time. 3. Patient may wear soft cervical collar for comfort support as needed. 4. Patient should refrain from driving until at least after their first follow- up appointment in the office. 5. Patient should avoid excessive cervical flexion, extension, and side bending; avoid overhead lifting; no lifting greater than 10 pounds 6. Take medications as prescribed 7. Patient should avoid anti-inflammatory medications over the next 6 weeks postoperatively 8. Do not soak in tub Discharge Disposition: HOME SELF-CARE
[2021-12-30] MEDS ORDERED: MULTIVITAMINS, THERA 1 EACH TAB PO SCH (09:00)
[2021-12-30] MEDS ORDERED: CHOLECALCIFEROL 125 MCG (5000 IU) TABLET PO SCH (09:00)
[2021-12-30] MEDS ORDERED: ASCORBIC ACID 500 MG TAB PO SCH (09:00)
[2021-12-30] MEDS ORDERED: NON FORMULARY DRUG (Vitamin B Complex [Vitamin B Complex] 1 EACH Capsule) PO SCH (09:00)
[2021-12-30] MEDS ORDERED: NON FORMULARY DRUG (Fish Oil/Dha/Epa [Fish Oil 1,200 Mg Fish Oil] 1 EACH Capsule) PO SCH (09:00)
[2021-12-30] MEDS ORDERED: FENOFIBRATE 160 MG TAB PO SCH (09:00)
== END 2021-12-30 11:50 | disposition home or self-care (01) ==
LOC: OR 11:29 → 5NMEDONC 16:14 → OR 12-30 04:41
PROVIDERS: ADMIT Orthopaedic Surgery Orthopaedic Surgery of the Spine; ATTEND Orthopaedic Surgery Orthopaedic Surgery of the Spine
DX: M48.03 Spinal stenosis, cervicothoracic region (principal); M50.03 Cervical disc disorder with myelopathy, cervicothoracic region; M54.12 Radiculopathy, cervical region; M25.78 Osteophyte, vertebrae; Z98.1 Arthrodesis status; I10 Essential (primary) hypertension; E78.2 Mixed hyperlipidemia; N28.9 Disorder of kidney and ureter, unspecified; K30 Functional dyspepsia; E66.9 Obesity, unspecified; Z68.33 Body mass index [BMI] 33.0-33.9, adult; Z87.891 Personal history of nicotine dependence; L98.9 Disorder of the skin and subcutaneous tissue, unspecified; Z97.3 Presence of spectacles and contact lenses; Z98.890 Other specified postprocedural states; Z83.3 Family history of diabetes mellitus; Z82.49 Family history of ischemic heart disease and other diseases of the circulatory system; Z79.899 Other long term (current) drug therapy; Z88.8 Allergy status to other drugs, medicaments and biological substances
CPT/HCPCS: 86900; 86901; 86850; 72020; 22551; 22845; 20931; G0378; C1713; C1762; J2250; J1200; J1100; J2710; J0690 ×2; J2405; J3010; J1170 ×3; J2370; J0330; J2704; J2001

== ENCOUNTER 2022-09-11 22:06 | Emergency (ER) | payer MEDICARE ==
[2022-09-11] MEDS ORDERED: IBUPROFEN 400 MG TAB PO STA (22:30)
[2022-09-11] MEDS ORDERED: diphenhydrAMINE 50 MG CAP PO STA (22:30)
[2022-09-11] MEDS ORDERED: HYDROcodone/APAP 5-325MG 1 EACH TAB PO STA (22:30)
--- NOTE | 2022-09-11 22:38 | ED ---
Headache HPI - General Chief Complaint: Headache Stated Complaint: Headache, Neck pain, Fever Time Seen by Provider: 09/11/22 22:17 Mode of arrival: ambulatory - History of Present Illness Initial Comments: This patient is 67-year-old man who presents to have evaluation for constellation of symptoms that started coming on he states probably 3-4 days ago (contrary to triage notes stating 2 days). The patient also notes that he started developing a rash around the left side of his abdomen. Patient states he's had some fevers and chills. The headache is bifrontal, aching, moderately severe. He has not noted worsening or relieving factors. It is not worst headache of life. There is no neck stiffness. No neurologic symptoms. MD Complaint: headache -: days(s) Onset Description: gradual Location: right, left, frontal Quality: aching Consistency: constant Improves With: nothing Worsens With: none Context: occurred at rest Associated Symptoms: fever, nausea Treatments Prior to Arrival: none - Related Data Home Medications Medication Instructions Recorded Confirmed Enalapril [Vasotec] 5 mg PO BID 02/12/16 12/29/21 Fenofibrate Nanocrystallized 145 mg PO DAILY 02/12/16 12/29/21 [Fenofibrate] Metoprolol Tartrate [Lopressor] 50 mg PO BID 02/12/16 12/29/21 amLODIPine [Norvasc] 5 mg PO BID 02/12/16 12/29/21 hydroCHLOROthiazide 12.5 mg PO Q48H 02/12/16 12/29/21 traMADol HCL [Ultram] 50 mg PO Q6H PRN 02/12/16 12/29/21 Atorvastatin [Lipitor] 10 mg PO HS 11/27/17 12/29/21 Potassium Chloride [Klor-Con 10 ER] 10 meq PO HS 11/27/17 12/29/21 Ascorbic Acid [Vitamin C] 500 mg PO DAILY 06/19/19 12/29/21 Cholecalciferol [Vitamin D3 (25 5,000 unit PO DAILY 06/19/19 12/29/21 Mcg = 1000 Iu)] Fish Oil/Dha/Epa [Fish Oil 1,200 1 each PO DAILY 06/19/19 12/29/21 mg Fish Oil] Vitamin B Complex 1 each PO DAILY 06/19/19 12/29/21 Calcium Carbonate [Tums] 1,000 mg PO QID PRN 12/25/21 12/29/21 Multivitamins, Thera [Multivitamin 1 tab PO DAILY 12/25/21 12/29/21 (formulary)] Previous Rx's Medication Instructions Recorded Albuterol Inhaler [Ventolin Hfa 1 puff INHALATION RT-QID PRN #1 11/23/20 Inhaler] puff HYDROcodone/APAP 5-325MG [[place] 1 tab PO Q4HR PRN 3 Days #18 tab 09/11/22 5-325] valACYclovir HCL [Valacyclovir] 1,000 mg PO Q8H #21 tab 09/11/22 Allergies Allergy/AdvReac Type Severity Reaction Status Date / Time celecoxib [From Celebrex] Allergy Unknown Unknown Verified 09/11/22 22:13 Review of Systems ROS Statement: Those systems with pertinent positive or pertinent negative responses have been documented in the HPI. ROS Other: All systems not noted in ROS Statement are negative. Constitutional: Reports: fever, chills. Denies: weakness Eyes: Denies: eye pain, vision change Respiratory: Denies: cough, dyspnea Cardiovascular: Denies: chest pain, palpitations Gastrointestinal: Denies: abdominal pain, nausea, vomiting, diarrhea Genitourinary: Denies: dysuria, hematuria Musculoskeletal: Reports: arthralgia, myalgia. Denies: back pain Skin: Reports: as per HPI, rash Neurological: Reports: as per HPI, headache. Denies: weakness, numbness, paresthesias, confusion Past Medical History Past Medical History: GERD/Reflux, Hearing Disorder / Deafness, Hyperlipidemia, Hypertension, Liver Disease, Musculoskeletal Disorder, Pneumonia, Prostate Disorder, Renal Disease, Skin Disorder Additional Past Medical History / Comment(s): Hx kidney stone. Cervical herniated disc, diff w/ use of Rt arm bicep/hand. NT Lt shoulder. Sl rash inner arms. Fatty liver disease. Sl BPH. Covid/pneumonia 1 year ago. History of Any Multi-Drug Resistant Organisms: None Reported Past Surgical History: Hernia Repair, Orthopedic Surgery Additional Past Surgical History / Comment(s): Cervical fusion, Bilat shoulder SX, Colonoscopies, SX for kidney stones. neck surgery. Past Anesthesia/Blood Transfusion Reactions: Motion Sickness, Postoperative Nausea & Vomiting (PONV) Additional Past Anesthesia/Blood Transfusion Reaction / Comment(s): Had issues coming out of Anesthesia. Stated N/V Past Psychological History: No Psychological Hx Reported Smoking Status: Never smoker Past Alcohol Use History: None Reported Past Drug Use History: None Reported - Past Family History Sister(s) Family Medical History: Cancer Father Family Medical History: Coronary Artery Disease (CAD) General Exam General appearance: alert, in no apparent distress Head exam: Present: atraumatic, normocephalic Eye exam: Present: normal appearance. Absent: scleral icterus, conjunctival injection Neck exam: Present: normal inspection, full ROM. Absent: tenderness, meningismus Respiratory exam: Present: normal lung sounds bilaterally. Absent: respiratory distress, wheezes, rales, rhonchi, stridor Cardiovascular Exam: Present: regular rate, normal rhythm, normal heart sounds. Absent: systolic murmur, diastolic murmur, rubs, gallop GI/Abdominal exam: Present: soft. Absent: distended, tenderness, guarding, rebound, rigid, mass Extremities exam: Present: normal inspection, normal capillary refill. Absent: pedal edema, calf tenderness Back exam: Present: normal inspection. Absent: CVA tenderness (R), CVA tenderness (L) Neurological exam: Present: alert, oriented X3. Absent: motor sensory deficit Skin exam: Present: warm, dry, intact, normal color, rash, vesicles (Patient has left dermatomal rash around the abdomen, approximately T11 level. There are clusters of vesicles on an erythematous base.) Course Vital Signs 09/11/22 09/12/22 22:07 00:24 Temperature 99.8 F H 98.6 F Pulse Rate 99 78 Respiratory 19 16 Rate Blood Pressure 186/80 140/98 O2 Sat by Pulse 97 100 Oximetry Medical Decision Making - Medical Decision Making This patient is 67-year-old man here to be seen about constellation of symptoms including fever or chills, headache, body aches, left-sided trunk rash. The patient does with textbook case of herpes zoster. Review reveals this is not worst headache of life he has had headaches this bad before previously with covid. He has had improvement with fluids and medications here. Patient started with antiviral therapy and will continue this. Discussed appropriate further care and follow-up as well as return parameters. Was pt. sent in by a medical professional or institution? @ -no Did you speak to anyone other than the patient for history? @ -[ Did you review nursing and triage notes? @ -[Disagree duration of symptoms Were old charts reviewed? @ -[No Differential Diagnosis? @ -[Differential Headache: Migraine, tension, cluster, viral syndrome, this is not meant to be an all- inclusive list. EKG interpreted by me (3pts min.)? @ -[none] X-rays interpreted by me (1pt min.)? @ -[none] CT interpreted by me (1pt min.)? @ -[none] U/S interpreted by me (1pt. min.)? @ -[none] What testing was considered but not performed? (CT, X-rays, U/S, labs)? Why? @ [None What meds were considered but not given? Why? @ -[none] Did you discuss the management of the patient with other professionals? @ -[No Did you reconcile home meds? @ -[none] Was smoking cessation discussed for >3mins.? @ -[none] Was critical care preformed (if so, how long)? @ -[none] Were there social determinants of health that impacted care today? How? (Homelessness, low income, unemployed, alcoholism, drug addiction, transportation, low edu. Level, literacy, decrease access to med. care, group home, rehab)? @ -[No Was there de-escalation of care discussed even if they declined? (Discuss DNR or withdrawal of care, Hospice)? @ -[No What co-morbidities impacted this encounter? (DM, HTN, Smoking, COPD, CAD, Cancer, CVA, Hep., AIDS, mental health diagnosis, sleep apnea, morbid obesity)? @ -[None Was patient admitted / discharged? @ -[Discharged Undiagnosed new problem with uncertain prognosis? @ -[none] Drug Therapy requiring intensive monitoring for toxicity (Heparin, Nitro, Insulin, Cardizem)? @ -[none] Were any procedures done? @ -[none] Diagnosis/symptom? @ -[Acute herpes zoster Acute, or Chronic, or Acute on Chronic? @ -[Acute Uncomplicated (without systemic symptoms) or Complicated (systemic symptoms)? @ -[Uncomplicated Side effects of treatment? @ -[none] Exacerbation, Progression, or Severe Exacerbation] @ -[no] Poses a threat to life or bodily function? @ -[no] Disposition Clinical Impression: Zoster Disposition: HOME SELF-CARE Condition: Good Instructions (If sedation given, give patient instructions): Shingles (ED) Prescriptions: HYDROcodone/APAP 5-325MG [[place] 5-325] 1 tab PO Q4HR PRN 3 Days #18 tab PRN Reason: Pain valACYclovir HCL [Valacyclovir] 1,000 mg PO Q8H #21 tab Is patient prescribed a controlled substance at d/c from ED?: Yes When asked, does pt state using other controlled substances?: No If prescribed controlled substance>3 days was MAPS reviewed?: Prescribed <3 Days If opioid is for acute pain is fill amount 7 days or less?: Yes If Rx opioid, was Start Talking consent form obtained?: Yes Referrals: Baltazar Lay DO [Primary Care Provider] - 1-2 days
[2022-09-11] MEDS ORDERED: METOCLOPRAMIDE 5 MG/ML 2 ML VIAL IVP STA (23:04)
[2022-09-11] MEDS ORDERED: SODIUM CHLORIDE 0.9% 1,000 ML IV ONE (23:04)
[2022-09-11] MEDS ORDERED: methylPREDNISolone SOD SUCCI 125 MG/2 ML VIAL IV STA (23:05)
[2022-09-12 00:25] VITALS: BP 140/98; PULSE 78; RESP 16; TEMP 98.6
== END 2022-09-12 00:27 | disposition home or self-care (01) ==
LOC: EC 22:06
DX: B02.9 Zoster without complications (principal); K21.9 Gastro-esophageal reflux disease without esophagitis; E78.5 Hyperlipidemia, unspecified; I10 Essential (primary) hypertension; Z79.899 Other long term (current) drug therapy
CPT/HCPCS: 99284; 96374; 96375; 96361; J2765; J2930

== ENCOUNTER 2023-01-07 08:05 | Day surgery (SDC) | payer MEDICARE ==
--- NOTE | 2023-01-07 07:11 | P.GSHP ---
History of Present Illness H&P Date: 01/07/23 CHIEF COMPLAINT: Colon screen HISTORY OF PRESENT ILLNESS: The patient is a 67-year-old male who presents for colon screen. Lower endoscopy was offered for further evaluation and management. PAST MEDICAL HISTORY: Please see list. PAST SURGICAL HISTORY: Please see list. MEDICATIONS: Please see list. ALLERGIES: Please see list. SOCIAL HISTORY: No illicit drug use FAMILY HISTORY: No reports of Crohn disease or ulcerative colitis. REVIEW OF ORGAN SYSTEMS: CONSTITUTIONAL: No reports of fevers or chills. PHYSICAL EXAM: VITAL SIGNS: Stable GENERAL: Well-developed pleasant in no acute distress. HEENT: No scleral icterus. Extraocular movements grossly intact. Moist buccal mucosa. NECK: Supple without lymphadenopathy. CHEST: Unlabored respirations. Equal bilateral excursions. CARDIOVASCULAR: Regular rate and rhythm. Distal 2+ pulses. ABDOMEN: Soft, nontender, nondistended. MUSCULOSKELETAL: No clubbing, cyanosis, or edema. ASSESSMENT: 1. Colon screen. PLAN: 1. Recommend proceeding with a lower endoscopy Past Medical History Past Medical History: GERD/Reflux, Hearing Disorder / Deafness, Hyperlipidemia, Hypertension, Musculoskeletal Disorder, Pneumonia, Prostate Disorder, Renal Disease, Skin Disorder Additional Past Medical History / Comment(s): Hx kidney stone on left side.. Cervical herniated disc, diff w/ use of Rt arm bicep/hand, & weak shorthand reporter. hx Lt shoulder. Sl rash inner arms tx with cream selinium sulfide. Sl BPH. Covid/pneumonia 1 year ago. tinnitis. 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 History of Any Multi-Drug Resistant Organisms: None Reported Past Surgical History: Hernia Repair, Orthopedic Surgery Additional Past Surgical History / Comment(s): Cervical fusion, Bilat shoulder SX, Colonoscopies, SX for kidney stones. neck surgery. Past Anesthesia/Blood Transfusion Reactions: Motion Sickness, Postoperative Nausea & Vomiting (PONV) Additional Past Anesthesia/Blood Transfusion Reaction / Comment(s): Had issues coming out of Anesthesia. Stated N/V Smoking Status: Former smoker - Past Family History Sister(s) Family Medical History: Cancer Father Family Medical History: Coronary Artery Disease (CAD) Medications and Allergies Home Medications Medication Instructions Recorded Confirmed Type Enalapril [Vasotec] 5 mg PO BID 02/12/16 01/05/23 History Fenofibrate Nanocrystallized 145 mg PO DAILY 02/12/16 01/05/23 History [Fenofibrate] Metoprolol Tartrate [Lopressor] 50 mg PO BID 02/12/16 01/05/23 History amLODIPine [Norvasc] 5 mg PO BID 02/12/16 01/05/23 History hydroCHLOROthiazide 12.5 mg PO Q48H 02/12/16 01/05/23 History traMADol HCL [Ultram] 50 mg PO Q6H PRN 02/12/16 01/05/23 History Atorvastatin [Lipitor] 10 mg PO HS 11/27/17 01/05/23 History Potassium Chloride [Klor-Con 10 ER] 10 meq PO HS 11/27/17 01/05/23 History Ascorbic Acid [Vitamin C] 500 mg PO DAILY 06/19/19 01/05/23 History Cholecalciferol [Vitamin D3 (25 5,000 unit PO DAILY 06/19/19 01/05/23 History Mcg = 1000 Iu)] Fish Oil/Dha/Epa [Fish Oil 1,200 1 each PO DAILY 06/19/19 01/05/23 History mg Fish Oil] Vitamin B Complex 1 each PO DAILY 06/19/19 01/05/23 History Albuterol Inhaler [Ventolin Hfa 1 puff INHALATION RT-QID PRN #1 11/23/20 01/05/23 Rx Inhaler] puff Calcium Carbonate [Tums] 1,000 mg PO QID PRN 12/25/21 01/05/23 History Multivitamins, Thera [Multivitamin 1 tab PO DAILY 12/25/21 01/05/23 History (formulary)] Allergies Allergy/AdvReac Type Severity Reaction Status Date / Time celecoxib [From Celebrex] Allergy Unknown Unknown Verified 01/05/23 11:59
[~2023-01-07 08:05] MED LIST changes: -DEXAMETHASONE SOD PHOSPHATE 4 MG/ML 1 ML VIAL IV ONE; -HYDROmorphone 0.5 MG/0.5 ML SYRINGE IVP PRN; +LACTATED RINGERS 1,000 ML IV SCH; -ONDANSETRON 4 MG/2 ML VIAL IVP ONE; -ceFAZolin 1,000 MG in SODIUM CHLORIDE 0.9% IRRIGATIO 1,000 ML IRRIGATION PRN
[2023-01-07 08:20] VITALS: TEMP 97.6
[2023-01-07] MEDS ORDERED: LIDOCAINE 2% INJ 20 MG/ML (2 ML VIAL) ONE (08:58)
[2023-01-07] MEDS ORDERED: PROPOFOL 10 MG/ML 20 ML VIAL IV ONE (08:58)
--- NOTE | 2023-01-07 09:25 | P.PCN ---
Date of Procedure: 01/07/23 Description of Procedure: PREOPERATIVE DIAGNOSIS: Personal history of colon polyps Colonoscopy screening POSTOPERATIVE DIAGNOSIS: Tubular adenoma descending colon Tubular adenoma transverse colon Internal hemorrhoids, grade 2 OPERATION: Colonoscopy to the ileocecal valve and appendiceal orifice, cecum Colonoscopy with cold forceps biopsy SURGEON: Neeru Lopez MD. ANESTHESIA: MAC. INDICATIONS: The patient is an 67-year-old male who presents personal history of colon polyps. Last colonoscopy 5 years. Benefits and risks were described and informed consent was obtained. DESCRIPTION OF PROCEDURE: The patient had undergone Sutab prep. The patient had been brought into the operating room and laid in the left lateral decubitus position. After adequate intravenous sedation, the rectum was examined with 2% lidocaine jelly. The prostate was unremarkable. External hemorrhoids were encountered. The rectal tone was within normal limits. No lesions were palpated in the rectal vault. An Olympus colonoscope was advanced until the cecum, ileocecal valve and appendiceal orifice were clearly viewed. The prep was fair. No sigmoid diverticulosis was encountered. Colonic polyps were found and removed. No evidence of focal colitis was found. Retroflexion of the scope demonstrated grade 3 internal hemorrhoids without active bleeding or inflammation. The colon was desufflated. The patient had tolerated the procedure well. Withdrawal time was over 6 minutes. FINDINGS: Aronchick preparation quality scale 2+ (1-5) Internal hemorrhoids, grade 3 External hemorrhoids, grade 3. No arteriovenous malformations. No sigmoid diverticulosis Removal of 3 polyps: - Cold forceps biopsy at 40 cm from the anal verge, 5 mm polyp, descending colon - Cold forceps biopsy at mid transverse colon, 5 mm polyp. - Cold forceps biopsy at descending colon, 4 mm polyp No focal colitis. RECOMMENDATIONS: Repeat colonoscopy in 3 years, 2025 Plan - Discharge Summary Discharge Rx Participant: No New Discharge Prescriptions: Continue traMADol HCL [Ultram] 50 mg PO Q6H PRN PRN Reason: Pain amLODIPine [Norvasc] 5 mg PO BID Metoprolol Tartrate [Lopressor] 50 mg PO BID Enalapril [Vasotec] 5 mg PO BID hydroCHLOROthiazide 12.5 mg PO Q48H Fenofibrate Nanocrystallized [Fenofibrate] 145 mg PO DAILY Atorvastatin [Lipitor] 10 mg PO HS Potassium Chloride [Klor-Con 10 ER] 10 meq PO HS Cholecalciferol [Vitamin D3 (25 Mcg = 1000 Iu)] 5,000 unit PO DAILY Ascorbic Acid [Vitamin C] 500 mg PO DAILY Vitamin B Complex 1 each PO DAILY Fish Oil/Dha/Epa [Fish Oil 1,200 mg Fish Oil] 1 each PO DAILY Calcium Carbonate [Tums] 1,000 mg PO QID PRN PRN Reason: GERD Albuterol Inhaler [Ventolin Hfa Inhaler] 1 puff INHALATION RT-QID PRN #1 puff PRN Reason: Shortness Of Breath Multivitamins, Thera [Multivitamin (formulary)] 1 tab PO DAILY Discharge Medication List Enalapril [Vasotec] 5 mg PO BID 02/12/16 [History] Fenofibrate Nanocrystallized [Fenofibrate] 145 mg PO DAILY 02/12/16 [History] Metoprolol Tartrate [Lopressor] 50 mg PO BID 02/12/16 [History] amLODIPine [Norvasc] 5 mg PO BID 02/12/16 [History] hydroCHLOROthiazide 12.5 mg PO Q48H 02/12/16 [History] traMADol HCL [Ultram] 50 mg PO Q6H PRN 02/12/16 [History] Atorvastatin [Lipitor] 10 mg PO HS 11/27/17 [History] Potassium Chloride [Klor-Con 10 ER] 10 meq PO HS 11/27/17 [History] Ascorbic Acid [Vitamin C] 500 mg PO DAILY 06/19/19 [History] Cholecalciferol [Vitamin D3 (25 Mcg = 1000 Iu)] 5,000 unit PO DAILY 06/19/19 [History] Fish Oil/Dha/Epa [Fish Oil 1,200 mg Fish Oil] 1 each PO DAILY 06/19/19 [History] Vitamin B Complex 1 each PO DAILY 06/19/19 [History] Albuterol Inhaler [Ventolin Hfa Inhaler] 1 puff INHALATION RT-QID PRN #1 puff 11/23/20 [Rx] Calcium Carbonate [Tums] 1,000 mg PO QID PRN 12/25/21 [History] Multivitamins, Thera [Multivitamin (formulary)] 1 tab PO DAILY 12/25/21 [History] Follow up Appointment(s)/Referral(s): Neeru Lopez MD [STAFF PHYSICIAN] - As Needed Patient Instructions/Handouts: Colorectal Polyps (GEN) Activity/Diet/Wound Care/Special Instructions: Repeat colonoscopy in 3 years, 2025 Discharge Disposition: HOME SELF-CARE
[2023-01-07 09:40] VITALS: BP 135/72; PULSE 71; RESP 16
== END 2023-01-07 10:30 | disposition home or self-care (01) ==
LOC: ORWHC2ENDO 08:05
PROVIDERS: ATTEND Surgery Plastic and Reconstructive Surgery
DX: Z12.11 Encounter for screening for malignant neoplasm of colon (principal); D12.3 Benign neoplasm of transverse colon; Q85.9 Phakomatosis, unspecified; K64.4 Residual hemorrhoidal skin tags; K64.2 Third degree hemorrhoids; I10 Essential (primary) hypertension; E78.5 Hyperlipidemia, unspecified; Z86.16 Personal history of COVID-19; K21.9 Gastro-esophageal reflux disease without esophagitis; Z87.442 Personal history of urinary calculi; Z88.6 Allergy status to analgesic agent; N40.0 Benign prostatic hyperplasia without lower urinary tract symptoms; Z79.899 Other long term (current) drug therapy
CPT/HCPCS: 88305; 88342; 88341; 45380; J2704; J2001

== ENCOUNTER → 2023-11-30 | Outpatient (CLI) | payer MEDICARE ==
[2023-11-30 09:46] LABS: African American GFR (CKD) 52 (>60 ml/min/1.73 sqM); Blood Urea Nitrogen 28 mg/dL (9-20); Non-African American GFR(CKD) 45 (>60 ml/min/1.73 sqM)
--- NOTE | 2023-11-30 10:34 | CT ---
EXAMINATION TYPE: CT chest w con CT DLP: 746 mGycm, Automated exposure control for dose reduction was used. DATE OF EXAM: 11/30/2023 10:24 AM COMPARISON: Chest radiograph from same day. Multiple CTs of the chest with most recent on . CLINICAL INDICATION:Male, 68 years old with history of R06.09 dyspnea; PHH, Dyspnea x 6 months, no sp ecific illness prior but patient did have shingles and he said it started shortly after that. TECHNIQUE: Multiple axial images were obtained through the chest. Sagittal and coronal reformats were created for review. Contrast used:100 mL of Isovue 300 with IV Contrast (None if empty) Oral contrast used: (None if empty) FINDINGS: LUNGS/ PLEURA: No evidence for focal consolidation, pneumothorax or pleural effusion there are scatte red peripheral reticulation. Basilar streaky atelectasis most pronounced in the left lung base. AIRWAY: Patent and unremarkable. No bronchiectasis or bronchial wall thickening. HEART: Size within normal limits. MEDIASTINUM: No gross evidence of adenopathy. VASCULATURE: No aortic aneurysm. MUSCULOSKELETAL: Mild disc degeneration changes are present throughout the thoracolumbar spine. SOFT TISSUES/LYMPH NODES: Unremarkable. LOWER NECK: No significant findings. UPPER ABDOMEN: Diffuse low-attenuation to the liver parenchyma. Bilateral simple appearing renal cyst s. IMPRESSION: 1. No evidence for acute process within the lungs. Peripheral reticulation throughout the lungs coul d be sequela prior atypical pneumonia. No evidence for pulmonary fibrosis. 2. Hepatic steatosis. 3. Simple appearing renal cysts.
--- NOTE | 2023-11-30 13:00 | FL ---
EXAMINATION TYPE: FL sniff test without CXR DATE OF EXAM: 11/30/2023 COMPARISON: NONE HISTORY: R06.09 OTHER FORMS OF DYSPNEA TECHNIQUE: Fluoroscopy. FINDINGS: LEFT DIAPHRAGM ELEVATED PER PREVIOUS CXR STUDY 26 SEC FL 2281.39 DAP There is mild elevation of the left hemidiaphragm. At sniffing there is paradoxical motion of the lef t hemidiaphragm suggesting left hemidiaphragmatic paralysis. Normal motion of the right hemidiaphragm . IMPRESSION: At sniffing there is paradoxical motion of the left hemidiaphragm suggesting left hemidi aphragmatic paralysis.
== END | disposition home or self-care (01) ==
LOC: RADCTMAIN 09:03
PROVIDERS: ATTEND Internal Medicine
DX: N28.1 Cyst of kidney, acquired (principal); K76.0 Fatty (change of) liver, not elsewhere classified; R06.09 Other forms of dyspnea
CPT/HCPCS: 82565; 84520; 76000; 71260; 36415; Q9967